=== PATIENT | male | born 1985 | race Hispanic/Latino ===

== ENCOUNTER 2017-05-15 07:59 | Outpatient (RCR) | payer OTHER ==
[2017-05-15] MEDS ORDERED: LIDOCAINE VISC 2% SOLN 15 ML UDC ONE (13:36)
== END 2017-05-17 ==
LOC: WCC 07:59
PROVIDERS: ATTEND Family Medicine Adult Medicine
DX: T81.89XA Other complications of procedures, not elsewhere classified, initial encounter (principal); F15.10 Other stimulant abuse, uncomplicated; W29.8XXA Contact with other powered hand tools and household machinery, initial encounter
CPT/HCPCS: 87071; 87075; 87205

== ENCOUNTER 2017-06-05 10:05 | Outpatient (RCR) | payer OTHER ==
[~2017-06-05 10:05] MED LIST: LIDOCAINE VISC 2% SOLN 15 ML UDC ONE
[2017-06-05] MEDS ORDERED: HYDROCORTISONE 1% CREAM 30 GM TUBE ONE (16:54)
[2017-06-05] MEDS ORDERED: LIDOCAINE VISC 2% SOLN 15 ML UDC ONE (16:54)
== END 2017-06-16 ==
LOC: WCC 10:05
PROVIDERS: ATTEND Family Medicine Adult Medicine
DX: T81.89XA Other complications of procedures, not elsewhere classified, initial encounter (principal); W29.8XXA Contact with other powered hand tools and household machinery, initial encounter; F15.10 Other stimulant abuse, uncomplicated

== ENCOUNTER 2017-06-11 15:57 | Outpatient (RCR) | payer OTHER | END 2017-06-16 | LOC: PT 15:57 | PROVIDERS: ATTEND Family Medicine | DX: S21.9 Open wound of unspecified part of thorax (principal); M25.511 Pain in right shoulder | CPT/HCPCS: 97161; G8984; G8985; G8986 ==

== ENCOUNTER 2017-06-24 09:34 | Outpatient (RCR) | payer OTHER ==
[~2017-06-24 09:34] MED LIST changes: +HYDROCORTISONE 1% CREAM 30 GM TUBE ONE
== END 2017-07-17 ==
LOC: WCC 09:34
PROVIDERS: ATTEND Family Medicine Adult Medicine
DX: T81.89XA Other complications of procedures, not elsewhere classified, initial encounter (principal); F15.10 Other stimulant abuse, uncomplicated; W29.8XXA Contact with other powered hand tools and household machinery, initial encounter